=== PATIENT | female | born 1995 | race African-American/Black ===

== ENCOUNTER 2018-08-24 07:55 | Emergency (ER) | payer OTHER ==
[~2018-08-24] VITALS: Ht 170.2 cm; Wt 81.7 kg
[2018-08-24] MEDS ORDERED: PRENATAL COMPL1 EACH PO (09:34)
[2018-08-24 10:29] VITALS: BP 119/62
== END 2018-08-24 10:29 | disposition home or self-care (01) ==
LOC: ER 07:55
DX: Z34.83 Encounter for supervision of other normal pregnancy, third trimester (principal); Z3A.28 28 weeks gestation of pregnancy